=== PATIENT | female | born 1950 | race Caucasian/White ===

== ENCOUNTER 2017-09-19 08:07 | Day surgery (SDC) | payer OTHER, MEDICAID ==
[~2017-09-19] VITALS: Ht 157.5 cm; Wt 62.1 kg
[2017-09-19 08:49] VITALS: BP 132/78
[2017-09-19 08:51] LABS: BASOPHIL % 0.5 % (0-2); PLATELET COUNT 166 x10^3mcL (130-400); RED CELL DISTRIBUTION WIDTH 16.2 % (11.5-14.5)
[2017-09-19 08:58] LABS: CALCIUM 8.7 mg/dL (8.5-10.1); CARBON DIOXIDE 29.6 mmol/L (21-32); CHLORIDE SERUM 109 mmol/L (98-107); CREATININE SERUM 0.5 mg/dL (0.6-1.0); GFR1 > 60 mL/min; GLUCOSE SERUM 93 mg/dL (74-106); SODIUM SERUM 145 mmol/L (136-145)
[2017-09-19 15:29] VITALS: BP 117/70
== END 2017-09-19 15:35 ==
LOC: DS 08:07
PROVIDERS: Neuromusculoskeletal Medicine, Sports Medicine
PROC: 0YP90YZ Removal of Other Device from Right Lower Extremity, Open Approach (ICD-10-PCS; principal; 2017-09-19 13:00)
DX: T84.194A Other mechanical complication of internal fixation device of right femur, initial encounter (principal); I10 Essential (primary) hypertension; E11.9 Type 2 diabetes mellitus without complications; E78.5 Hyperlipidemia, unspecified; M81.0 Age-related osteoporosis without current pathological fracture; Z98.84 Bariatric surgery status; Y83.4 Other reconstructive surgery as the cause of abnormal reaction of the patient, or of later complication, without mention of misadventure at the time of the procedure; Y92.009 Unspecified place in unspecified non-institutional (private) residence as the place of occurrence of the external cause
CPT/HCPCS: 82962; J0690; J2250; J2270; J2405; J2704; J3010; J3490; J7030; Q0092